=== PATIENT | female | born 1960 | race Caucasian/White ===

== ENCOUNTER → 2023-01-18 12:55 | Outpatient (BNVA) | payer OTHER, MEDICAID, SELFPAY | PROVIDERS: Referring Provider Physician Assistant; Visit Provider Nurse Practitioner Family | DX: L72.0 Epidermal cyst (principal); Z80.8 Family history of malignant neoplasm of other organs or systems; D23.72 Other benign neoplasm of skin of left lower limb, including hip; L90.5 Scar conditions and fibrosis of skin; D22.5 Melanocytic nevi of trunk; L81.4 Other melanin hyperpigmentation; L85.3 Xerosis cutis | CPT/HCPCS: 10060; 99203 ==

== ENCOUNTER → 2024-01-06 14:17 | Outpatient (BNVA) | payer MEDICARE, MEDICAID, SELFPAY | PROVIDERS: Visit Provider Nurse Practitioner Family | DX: D23.72 Other benign neoplasm of skin of left lower limb, including hip (principal); L90.5 Scar conditions and fibrosis of skin; D22.5 Melanocytic nevi of trunk; L81.4 Other melanin hyperpigmentation; L85.3 Xerosis cutis; L57.0 Actinic keratosis; D48.5 Neoplasm of uncertain behavior of skin; Z80.8 Family history of malignant neoplasm of other organs or systems | CPT/HCPCS: 11102; 17000; 99213 ==

== ENCOUNTER 2024-11-30 12:41 | Outpatient (CLI) | payer MEDICARE, MEDICAID, SELFPAY ==
--- NOTE | 2024-11-30 12:40 | MM_ITS ---
WS: [id number] BILATERAL SCREENING DIGITAL TOMOSYNTHESIS MAMMOGRAM WITH CAD HISTORY: SCREENING COMPARISON: None available. Bilateral CC and MLO views with tomosynthesis and synthetic mammography submitted. Computer aided detection analyzed. Breast composition: There are scattered areas of fibroglandular density. No suspicious masses, microcalcifications or architectural distortion. Numerous scattered benign calcifications. MM/MM scr BI tomosynthesis [id number] IMPRESSION: BI-RADS: 2 - Benign. FOLLOW UP: 1 Year Follow-up
== END 2024-11-30 12:42 | disposition home or self-care (01) ==
PROVIDERS: PCP Nurse Practitioner Family; Visit Provider Nurse Practitioner Family
DX: Z12.31 Encounter for screening mammogram for malignant neoplasm of breast (principal); R92.323 Mammographic fibroglandular density, bilateral breasts; R92.1 Mammographic calcification found on diagnostic imaging of breast
CPT/HCPCS: 77063; 77067